=== PATIENT | male | born 1980 | race Two or more races ===

== ENCOUNTER 2020-03-12 15:05 | Emergency (ER) | payer OTHER ==
[~2020-03-12] VITALS: Ht 170.2 cm; Wt 77.1 kg
--- NOTE | 2020-03-12 15:36 | NUR ---
called in ed waiting room. no response.
[2020-03-12 15:40] VITALS: BP 126/75
[2020-03-12] MEDS ORDERED: LIDOCAINE 1%-EPI 1:100,000 20 ML VIAL ONE (16:13)
[2020-03-12] MEDS: LIDOCAINE 1%-EPI 1:100,000 50 ML VIAL IJ ONE (16:30)
[2020-03-12] MEDS ORDERED: TDAP [DIPH/PERTUSSIS/TET] 0.5 ML VIAL IM ONE (16:31)
[2020-03-12] MEDS: TDAP [DIPH/PERTUSSIS/TET] 0.5 ML VIAL IM ONE (16:33)
--- NOTE | 2020-03-12 16:37 | NUR ---
TDAP GIVEN ON L DELTOID.
--- NOTE | 2020-03-12 17:04 | NUR ---
LAC REPAIRED BY JEREMIAS VALLE.Patient discharged to home in stable condition. Written and verbal after care instructions given. Patient verbalizes understanding of instruction.
== END 2020-03-12 17:04 | disposition home or self-care (01) ==
LOC: ER 15:17
DX: S61.511A Laceration without foreign body of right wrist, initial encounter (principal); W26.8XXA Contact with other sharp object(s), not elsewhere classified, initial encounter; Y93.89 Activity, other specified; Y92.89 Other specified places as the place of occurrence of the external cause; Y99.0 Civilian activity done for income or pay
CPT/HCPCS: 12001; 90471; 90715; 99283; A6403; J3490

== ENCOUNTER 2020-03-15 10:40 | Emergency (ER) | payer OTHER ==
[~2020-03-15] VITALS: Ht 170.2 cm; Wt 78.0 kg
[2020-03-15 10:43] VITALS: BP 138/71
--- NOTE | 2020-03-15 10:56 | NUR ---
Patient discharged to home in stable condition. Written and verbal after care instructions given. Patient verbalizes understanding of instruction.
== END 2020-03-15 10:56 | disposition home or self-care (01) ==
LOC: ER 10:43
DX: S61.511D Laceration without foreign body of right wrist, subsequent encounter (principal); X58.XXXD Exposure to other specified factors, subsequent encounter

== ENCOUNTER 2020-03-23 16:10 | Emergency (ER) | payer OTHER ==
[~2020-03-23] VITALS: Ht 170.2 cm; Wt 77.1 kg
[2020-03-23 16:31] VITALS: BP 119/72
--- NOTE | 2020-03-23 16:43 | NUR ---
suture removal done. 3 sutures taken out. pt tolerated procedure well.
[2020-03-23] MEDS ORDERED: IV NS 0.9% 1,000 ML BAG IV ONE (17:00)
[2020-03-23] MEDS ORDERED: KETOROLAC TROMETHAMINE INJ 30 MG/ML VIAL IV ONE (17:00)
[2020-03-23] MEDS ORDERED: ONDANSETRON HCL/PF 4 MG/2 ML VIAL IVP ONE (17:00)
== END 2020-03-23 16:46 | disposition home or self-care (01) ==
LOC: ER 16:11
DX: S61.511D Laceration without foreign body of right wrist, subsequent encounter (principal); X58.XXXD Exposure to other specified factors, subsequent encounter